=== PATIENT | female | born 1955 | race American Indian/Alaskan Native ===

== ENCOUNTER 2017-12-04 13:46 | Emergency (ER) | payer BC, OTHER ==
[2017-12-04 13:46] VITALS: BMI 33.0
[2017-12-04 14:33] VITALS: BP 158/81; PULSE 96; RESP 18; TEMP 100.4; O2SAT 96
--- NOTE | 2017-12-04 15:20 | ED PDOC ---
Arrival/HPI - General Chief Complaint: Flu-like Symptoms Time Seen by Provider: 12/04/17 15:16 Historian: Patient - History of Present Illness Narrative History of Present Illness (Text): 12/04/17 15:17 61 y/o female, Past Medical History - Infectious Disease Hx of Infectious Diseases: None - Tetanus Immunization Tetanus Immunization: Unknown - Cardiac Hx Hypertension: Yes - Neurological Hx Paralysis: No - Hematological/Oncological Hx Blood Transfusions: No Hx Blood Transfusion Reaction: No - Musculoskeletal/Rheumatological Hx Musculoskeletal Disorders: No - Psychiatric Hx Emotional Abuse: No Hx Physical Abuse: No Hx Substance Use: No - Surgical History Hx Section: Yes Hx Hysterectomy: Yes - Anesthesia Hx Anesthesia Reactions: Yes (NAUSEA, QUESINESS) Hx Malignant Hyperthermia: No - Suicidal Assessment Feels Threatened In Home Enviroment: No Family/Social History Smoking Status: Never Smoked Hx Alcohol Use: No Hx Substance Use: No Hx Substance Use Treatment: No Allergies/Home Meds Allergies/Adverse Reactions: Allergies No Known Allergies Allergy (Verified 12/04/17 14:33) Home Medications: Home Meds Medication Instructions Recorded Confirmed metroNIDAZOLE [Flagyl] 500 mg PO BID 12/04/17 12/04/17 Physical Exam Vital Signs Temp Pulse Resp BP Pulse Ox 12/04/17 14:30 100.4 F H 96 H 18 158/81 H 96 Medical Decision Making - RAD Interpretation Radiology Orders: 12/04/17 15:24 CHEST TWO VIEWS (PA/LAT) [RAD] Stat Disposition/Present on Arrival - Present on Arrival History of DVT/PE: No History of Uncontrolled Diabetes: No Urinary Catheter: No History of Decub. Ulcer: No History Surgical Site Infection Following: None - Disposition Forms: [employer] (Icelandic)
== END 2017-12-04 16:04 | disposition left against medical advice (07) ==
LOC: ED 13:46
DX: Z02.89 Encounter for other administrative examinations (principal); J11.1 Influenza due to unidentified influenza virus with other respiratory manifestations

== ENCOUNTER 2019-01-14 06:32 | Emergency (ER) | payer BC, OTHER ==
[2019-01-14 06:32] VITALS: BMI 33.0
[2019-01-14 06:39] VITALS: RESP 18; TEMP 97.9
[2019-01-14 07:10] VITALS: BP 157/72; PULSE 65; O2SAT 98
--- NOTE | 2019-01-14 07:25 | ED PDOC ---
Arrival/HPI - General Chief Complaint: Lower Extremity Problem/Injury Time Seen by Provider: 01/14/19 06:44 Historian: Patient - History of Present Illness Narrative History of Present Illness (Text): 01/14/19 07:23 63 year old female, whose past medical history includes hypertension, presents to the emergency department complaining of sprained right ankle since earlier this morning. Patient states she slipped on ice earlier today and sprained her right ankle. She denies fevers, chills, headache, dizziness, chest pain, shortness of breath, dyspnea on exertion, cough, abdominal pain, nausea, vomiting, diarrhea, back pain, neck pain, or any other complaint. Time/Duration: 1-3 hours Symptom Onset: Gradual Symptom Course: Unchanged Activities at Onset: Light Context: Slipped Past Medical History - Provider Review Nursing Documentation Reviewed: Yes - Infectious Disease Hx of Infectious Diseases: None - Tetanus Immunization Tetanus Immunization: Unknown - Cardiac Hx Hypertension: Yes - Neurological Hx Paralysis: No - Hematological/Oncological Hx Blood Transfusions: No Hx Blood Transfusion Reaction: No - Musculoskeletal/Rheumatological Hx Musculoskeletal Disorders: No - Psychiatric Hx Emotional Abuse: No Hx Physical Abuse: No Hx Substance Use: No - Surgical History Hx Section: Yes Hx Hysterectomy: Yes - Anesthesia Hx Anesthesia Reactions: Yes (NAUSEA, QUESINESS) Hx Malignant Hyperthermia: No - Suicidal Assessment Feels Threatened In Home Enviroment: No Family/Social History - Physician Review Nursing Documentation Reviewed: Yes Family/Social History: No Known Family HX Smoking Status: Never Smoked Hx Alcohol Use: No Hx Substance Use: No Hx Substance Use Treatment: No Allergies/Home Meds Allergies/Adverse Reactions: Allergies No Known Allergies Allergy (Verified 01/14/19 06:37) Home Medications: Home Meds Medication Instructions Recorded Confirmed Spironolactone [Aldactone] 50 mg PO DAILY 01/14/19 01/14/19 amLODIPine [Norvasc] 10 mg PO DAILY 01/14/19 01/14/19 Review of Systems - Physician Review All systems were reviewed & negative as marked: Yes - Review of Systems Cardiovascular: absent: Chest Pain Gastrointestinal: absent: Abdominal Pain Physical Exam - Physical Exam Narrative Physical Exam (Text): 01/14/19 07:27 Constitutional: No acute distress. Head: Normocephalic. Atraumatic. Eyes: PERRL. ENT: Moist mucous membranes. Neck: Supple. Cardiovascular: Regular rate. Chest: No tenderness. Respiratory: Clear to auscultation bilaterally. GI: Soft. Nontender. Nondistended. Back: No CVA tenderness. Musculoskeletal: no tenderness at fibular head, full ROM of knee, edema on the lateral aspect of the ankle, tenderness at the base of the 5th digit, tenderness diffusely throughout the ankle, pulses intact. Skin: No rash. Neurologic: Alert, no focal deficit. Sensation intact. Vital Signs Reviewed: Yes Vital Signs Temp Pulse Resp BP Pulse Ox 01/14/19 07:09 65 18 157/72 H 98 01/14/19 06:38 97.9 F 95 H 18 179/100 H 100 Temperature: Afebrile Blood Pressure: Hypertensive Pulse: Tachycardic Respiratory Rate: Normal Appearance: Positive for: Well-Appearing, Non-Toxic, Comfortable Pain Distress: None Mental Status: Positive for: Alert and Oriented X 3 Medical Decision Making ED Course and Treatment: 01/14/19 07:27 Impression: 63 year old female who presents to the emergency department complaining of sprained ankle. Differential Diagnosis included but are not limited to: sprain vs. fracture Plan: -- Right ankle X-ray -- Right foot X-ray -- Reassess and disposition Prior Visits: Notes and results from previous visits were reviewed. Progress Notes: Patient declined pain medication at this time. 01/14/19 08:20 Foot x-ray reviewed by radiologist, shows: IMPRESSION: Normal right foot radiographs. Ankle x-ray reviewed by radiologist, shows: IMPRESSION: Normal right ankle radiographs. 01/14/19 08:26 HAILE wrap. Crutches. Work note. Ice, rest, compression, elevation. F/u PMD. - RAD Interpretation Reinforced Ironworker: Radiologist - Scribe Statement The provider has reviewed the documentation as recorded by the Yael Elliott Provider Scribe Attestation: All medical record entries made by the Scribe were at my direction and personally dictated by me. I have reviewed the chart and agree that the record accurately reflects my personal performance of the history, physical exam, medical decision making, and the department course for this patient. I have also personally directed, reviewed, and agree with the discharge instructions and disposition. Disposition/Present on Arrival - Present on Arrival Any Indicators Present on Arrival: No History of DVT/PE: No History of Uncontrolled Diabetes: No Urinary Catheter: No History of Decub. Ulcer: No History Surgical Site Infection Following: None - Disposition Have Diagnosis and Disposition been Completed?: Yes Diagnosis: Ankle sprain Disposition: HOME/ ROUTINE Disposition Time: 08:27 Patient Plan: Discharge Condition: STABLE Discharge Instructions (ExitCare): Ankle Sprain Referrals: Nicola Zamudio MD [Family Provider] - Follow up with primary Forms: [facility] (Yoruba), WORK NOTE
--- NOTE | 2019-01-14 08:16 | RAD ---
Date of service: 01/14/2019 PROCEDURE: Right Ankle Radiographs. HISTORY: fall, ankle pain COMPARISON: None available. FINDINGS: BONES: Normal. No fracture. JOINTS: Normal. No osteoarthritis. Ankle mortise maintained. Talar dome intact SOFT TISSUES: Normal. OTHER FINDINGS: None. IMPRESSION: Normal right ankle radiographs.
--- NOTE | 2019-01-14 08:17 | RAD ---
Date of service: 01/14/2019 PROCEDURE: Right Foot Radiographs. HISTORY: fall, foot pain COMPARISON: None. FINDINGS: BONES: Normal. No fracture. JOINTS: Normal. SOFT TISSUES: Normal. OTHER FINDINGS: None. IMPRESSION: Normal right foot radiographs.
== END 2019-01-14 09:02 | disposition home or self-care (01) ==
LOC: ED 06:32
DX: S93.401A Sprain of unspecified ligament of right ankle, initial encounter (principal); W00.0XXA Fall on same level due to ice and snow, initial encounter